=== PATIENT | male | born 1955 | race Caucasian/White ===

== ENCOUNTER 2017-01-15 16:46 | Emergency (ER) | payer OTHER ==
[2017-01-15] MEDS ORDERED: DIPHTH,PERTUSS(ACELL),TET 0.5 ML DISP.SYRIN IM ONE (16:49)
[2017-01-15 16:52] VITALS: BP 134/91; PULSE 107; TEMP 98.3; BMI 22.9
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
== END 2017-01-15 18:34 | disposition home or self-care (01) ==
LOC: JERFT 16:46
PROC: 0HQGXZZ Repair Left Hand Skin, External Approach (ICD-10-PCS; principal; 2017-01-15)
PROC: 2W3KX1Z Immobilization of Left Finger using Splint (ICD-10-PCS; 2017-01-15)
PROC: 3E0234Z Introduction of Serum, Toxoid and Vaccine into Muscle, Percutaneous Approach (ICD-10-PCS; 2017-01-15)
DX: S61.142A Puncture wound with foreign body of left thumb with damage to nail, initial encounter (principal); W27.0XXA Contact with workbench tool, initial encounter; Y93.89 Activity, other specified; Y92.89 Other specified places as the place of occurrence of the external cause; Y99.0 Civilian activity done for income or pay
CPT/HCPCS: 12001-25; 29130; 73140-TC-LT; 90471; 90715; 99281-25

== ENCOUNTER 2019-07-25 15:21 | Emergency (ER) | payer OTHER ==
[2019-07-25 15:35] VITALS: BP 115/71; PULSE 71; TEMP 98.3; BMI 20.7
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
[2019-07-25] MEDS ORDERED: ACETAMINOPHEN 325 MG TABLET (FP) PO ONE (16:24)
[2019-07-25 16:27] LABS: BASO % 0.7 % (0-2.0); HEMATOCRIT 44.3 % (35.4-49); HEMOGLOBIN 14.9 GM/dL (11.7-16.9); LYMPH % 41.2 % (8-40); MCH 31.4 pg (25.7-33.7); MCHC 33.6 g/dl (32.0-35.9); MEAN CELL VOLUME 93.5 fl (80-96); MEAN PLT VOLUME 7.6 fl (7.5-11.1); MONO % 10.5 % (3.8-10.2); NEUT % 46.6 % (42.8-82.8); PLATELET COUNT 188 K/MM3 (134-434); RBC 4.74 M/mm3 (4.00-5.60); RDW 14.3 % (11.9-15.9); WHITE BLOOD COUNT 5.7 K/mm3 (4.0-10.0)
[2019-07-25] MEDS ORDERED: BACITRACIN 15 GM TUBE TOPICAL OINTMENT TP ONE (16:28)
[2019-07-25] MEDS ORDERED: BACITRACIN 0.9 GM PACKET ONE (16:44)
[2019-07-25] MEDS ORDERED: ACETAMINOPHEN 325 MG TABLET (FP) ONE (16:44)
[2019-07-25 16:55] LABS: BILIRUBIN,TOTAL 0.4 mg/dL (0.2-1); BLOOD UREA NITROGEN 22.5 mg/dL (7-18); CALCIUM 9.3 mg/dL (8.5-10.1); CREATININE 0.9 mg/dL (0.55-1.3); POTASSIUM 4.7 mmol/L (3.5-5.1); TOT PROT 6.6 g/dl (6.4-8.2)
[2019-07-25 17:14] LABS: INR 0.94 (0.83-1.09); PROTHROMBIN TIME (PATIENT) 11.1 SEC (9.7-13.0)
--- NOTE | 2019-07-26 15:07 | EKG ---
Test Reason : Blood Pressure : / mmHG Vent. Rate : 073 BPM Atrial Rate : 073 BPM P-R Int : 168 ms QRS Dur : 096 ms QT Int : 374 ms P-R-T Axes : 065 086 044 degrees QTc Int : 412 ms NORMAL SINUS RHYTHM NORMAL ECG NO PREVIOUS ECGS AVAILABLE Confirmed by MD ESTHER, ALISSA ([id number]) on 07/26/2019 3:07:04 PM Referred By: Confirmed By:ALISSA SANTANA MD
== END 2019-07-25 18:53 | disposition home or self-care (01) ==
LOC: JER 15:21
DX: S20.212A Contusion of left front wall of thorax, initial encounter (principal); W22.8XXA Striking against or struck by other objects, initial encounter; Y93.89 Activity, other specified; Y92.410 Unspecified street and highway as the place of occurrence of the external cause
CPT/HCPCS: 36415; 71101-TC-LT-FY; 80053; 82550; 83735; 84484; 85025; 85610; 93005; 93010; 99282-25

== ENCOUNTER 2021-08-18 10:19 | Emergency (ER) | payer OTHER ==
[2021-08-18 10:41] VITALS: BP 133/78; PULSE 97; TEMP 98.4; BMI 22.6
[2021-08-18] MEDS ORDERED: KETOROLAC TROMETHAMINE 30 MG/1 ML VIAL IM ONE (11:51)
[2021-08-18] MEDS ORDERED: TAMSULOSIN HCL 0.4 MG CAP PO ONE (11:51)
[2021-08-18] MEDS ORDERED: KETOROLAC TROMETHAMINE 30 MG/1 ML VIAL ONE (11:55)
[2021-08-18] MEDS ORDERED: TAMSULOSIN HCL 0.4 MG CAP ONE (11:55)
[2021-08-18 12:18] LABS: PH,URINE 7.5 (5.0-8.0); URINE APPEARANCE CLEAR; URINE BILIRUBIN NEGATIVE (NEGATIVE); URINE COLOR YELLOW; URINE GLUCOSE (UA) NEGATIVE (NEGATIVE); URINE KETONE NEGATIVE (NEGATIVE); URINE LEUK ESTERASE NEGATIVE (NEGATIVE); URINE NITRITE NEGATIVE (NEGATIVE); URINE PROTEIN NEGATIVE (NEGATIVE); URINE UROBILINOGEN 0.2 mg/dL (0.2-1.0)
== END 2021-08-18 14:21 | disposition home or self-care (01) ==
LOC: JERFT 10:19
PROC: 3E023GC Introduction of Other Therapeutic Substance into Muscle, Percutaneous Approach (ICD-10-PCS; principal; 2021-08-18)
DX: M54.50 Low back pain, unspecified (principal); R10.9 Unspecified abdominal pain
CPT/HCPCS: 74176-TC; 81003; 87086; 99284-25

== ENCOUNTER 2021-09-07 15:05 | Emergency (ER) | payer OTHER ==
[2021-09-07 15:27] VITALS: BMI 22.6
[2021-09-07] MEDS ORDERED: MECLIZINE HCL 25 MG TABLET (FP) PO ONE (17:24)
[2021-09-07] MEDS ORDERED: MECLIZINE HCL 25 MG TABLET (FP) ONE (17:33)
[2021-09-07] MEDS ORDERED: SODIUM CHLORIDE 1,000 ML IV STA (18:47)
[2021-09-07] MEDS ORDERED: ACETAMINOPHEN 1000 MG/100 ML VIAL IVPB ONE (18:47)
[2021-09-07] MEDS ORDERED: METOCLOPRAMIDE HCL INJECTION 10 MG/2 ML VIAL IVPB ONE (18:47)
[2021-09-07] MEDS ORDERED: METOCLOPRAMIDE HCL INJECTION 10 MG/2 ML VIAL ONE (19:13)
[2021-09-07] MEDS ORDERED: ACETAMINOPHEN INJECTION 100 ML IVPB ONE (19:14)
[2021-09-07 19:25] LABS: BASO % 1.1 % (0-2.0); EOS % 0.3 % (0-4.5); HEMATOCRIT 46.1 % (35.4-49); HEMOGLOBIN 15.7 GM/dL (11.7-16.9); LYMPH % 33.8 % (8-40); MCH 31.3 pg (25.7-33.7); MCHC 34.1 g/dl (32.0-35.9); MEAN CELL VOLUME 91.7 fl (80-96); MEAN PLT VOLUME 7.2 fl (7.5-11.1); MONO % 9.2 % (3.8-10.2); NEUT % 55.6 % (42.8-82.8); PLATELET COUNT 202 10^3/uL (134-434); RBC 5.02 M/mm3 (4.00-5.60); RDW 14.9 % (11.9-15.9); WHITE BLOOD COUNT 6.7 K/mm3 (4.0-10.0)
[2021-09-07 19:53] LABS: CHLORIDE 108 mmol/L (98-107); SODIUM 140 mmol/L (136-145)
[2021-09-07 19:56] LABS: ALBUMIN 3.8 g/dl (3.4-5.0); ANION GAP 7 MMOL/L (8-16); BLOOD UREA NITROGEN 18.4 mg/dL (7-18); CALCIUM 9.3 mg/dL (8.5-10.1); CO2 26 mmol/L (21-32); GLUCOSE,RANDOM 87 mg/dL (74-106)
[2021-09-07 19:59] LABS: SGOT/AST 19 U/L (15-37); SGPT/ALT 31 U/L (13-61)
[2021-09-07 20:00] LABS: CREATININE 0.9 mg/dL (0.55-1.3)
[2021-09-07 20:01] LABS: BILIRUBIN,TOTAL 0.6 mg/dL (0.2-1)
[2021-09-07 20:02] LABS: ALK PHOS 77 U/L (45-117)
[2021-09-07 20:51] VITALS: BP 121/81; PULSE 78; TEMP 98.6
== END 2021-09-07 20:53 | disposition home or self-care (01) ==
LOC: JER 15:05
PROC: 3E033NZ Introduction of Analgesics, Hypnotics, Sedatives into Peripheral Vein, Percutaneous Approach (ICD-10-PCS; principal; 2021-09-07)
PROC: 3E033GC Introduction of Other Therapeutic Substance into Peripheral Vein, Percutaneous Approach (ICD-10-PCS; 2021-09-07)
PROC: 3E0337Z Introduction of Electrolytic and Water Balance Substance into Peripheral Vein, Percutaneous Approach (ICD-10-PCS; 2021-09-07)
DX: R42 Dizziness and giddiness (principal); R51.9 Headache, unspecified; R11.0 Nausea
CPT/HCPCS: 36415; 80053; 84484; 85025; 96361; 96374; 96375; 99284-25; J0131

== ENCOUNTER 2022-04-28 12:26 | Emergency (ER) | payer MEDICARE, OTHER ==
[2022-04-28 12:39] VITALS: BP 119/85; PULSE 83; TEMP 97.9; BMI 22.1
[2022-04-28] MEDS ORDERED: KETOROLAC TROMETHAMINE 30 MG/1 ML VIAL IM ONE (13:06)
[2022-04-28] MEDS ORDERED: LIDOCAINE 5% TOPICAL PATCH TP ONE (13:06)
[2022-04-28] MEDS ORDERED: LIDOCAINE 5% TOPICAL PATCH ONE (13:08)
[2022-04-28] MEDS ORDERED: KETOROLAC TROMETHAMINE 30 MG/1 ML VIAL ONE (13:08)
[2022-04-28] MEDS ORDERED: LIDOCAINE PATCH REMOVAL MC SCH (22:00)
== END 2022-04-28 13:52 | disposition home or self-care (01) ==
LOC: JERFT 12:26
PROC: 3E0233Z Introduction of Anti-inflammatory into Muscle, Percutaneous Approach (ICD-10-PCS; principal; 2022-04-28)
DX: M54.50 Low back pain, unspecified (principal)
CPT/HCPCS: 72100-TC-FY; 96372; 99284-25

== ENCOUNTER 2022-09-20 13:45 | Emergency (ER) | payer MEDICARE ==
[2022-09-20 14:32] VITALS: BP 125/82; PULSE 79; RESP 18; TEMP 97.9; BMI 25.5
[2022-09-20] MEDS ORDERED: CYCLOBENZAPRINE HCL 10 MG TABLET (FP) PO ONE (18:11)
[2022-09-20] MEDS ORDERED: ACETAMINOPHEN 500 MG TABLET (FP) PO ONE (18:11)
[2022-09-20] MEDS ORDERED: KETOROLAC TROMETHAMINE 30 MG/1 ML VIAL IM ONE (18:11)
[2022-09-20] MEDS ORDERED: CYCLOBENZAPRINE HCL 10 MG TABLET (FP) ONE (18:36)
[2022-09-20] MEDS ORDERED: ACETAMINOPHEN 325 MG TABLET (FP) ONE (18:37)
[2022-09-20] MEDS ORDERED: KETOROLAC TROMETHAMINE 30 MG/1 ML VIAL ONE (18:37)
== END 2022-09-20 18:57 | disposition home or self-care (01) ==
LOC: JER 13:45
PROC: 3E0233Z Introduction of Anti-inflammatory into Muscle, Percutaneous Approach (ICD-10-PCS; principal; 2022-09-20)
DX: M54.6 Pain in thoracic spine (principal)
CPT/HCPCS: 71046-TC-FY; 93005; 93010; 96372; 99285-25